=== PATIENT | female | born 1975 | race Two or more races ===

== ENCOUNTER 2024-06-11 05:20 | Emergency (ER) | payer MEDICAID ==
[~2024-06-11] VITALS: Ht 165.1 cm; Wt 72.7 kg
--- NOTE | 2024-06-11 06:30 | ED.PDOC ---
History of Present Illness HPI Comments 49-year-old female with PMHx Anxiety presents with a chief complaint of anxiety x 1 month. Patient reports that she has been losing weight (approximately 20 lbs), shaking, and been anxious. Patient denies seeing her PMD for a check-up or mental health services. Patient also reports that sometimes she gets pa lpitations, but currently does not have any. No other symptoms or modifying factors present at this time. Chief Complaint: Anxiety Time Seen by MD: 06:21 Reviewed Notes: Medications, Allergies Allergies: Coded Allergies: No Known Drug Allergy (Verified Allergy, Unknown, 06/11/24) Information Source: Patient Mode of Arrival: Ambulatory Severity: Moderate Timing: Weeks Duration: Intermittent Prehospital treatment: None Past Medical History PAST MEDICAL HISTORY: Anxiety Surgical History: Denies all surgeries MEDICAL MASSAGE THERAPIST History: Denies all MEDICAL MASSAGE THERAPIST Hx Family History Family History: Reviewed,noncontributory to illness Social History Smoker: Non-Smoker Alcohol: Denies ETOH Use Drugs: Denies Drug Use Lives In: Home Constitutional: denies: chills, diaphoresis, fatigue, fever, malaise, sweats, weakness, others EENTM: denies: blurred vision, double vision, ear bleeding, ear discharge, ear drainage, ear pain, ear ringing, eye pain, eye redness, hearing loss, mouth pain, mouth swelling, nasal discharge, nose bleeding, nose congestion, nose pain, photophobia, tearing, throat pain, throat swelling, voice changes, others Respiratory: denies: cough, hemoptysis, orthopnea, SOB at rest, shortness of breath, SOB with excertion, stridor, wheezing, others Cardiovascular: denies: chest pain, dizzy spells, diaphoresis, Dyspnea on exertion, edema, irregular heart beat, left arm pain, lightheadedness, pal pitations, PND, syncope, others Gastrointestinal: denies: abdomen distended, abdominal pain, blood streaked bowels, constipated, diarrhea, dysphagia, difficulty swallowing, hematemesis, melena, nausea, poor appetite, poor fluid intake, rectal bleeding, rectal pain, vomiting, others Genitourinary: denies: abnormal vagina bleeding, burning, dyspareunia, dysuria, flank pain, frequency, hematuria, incontinence, pain, , vagina discharge, urgency, others Neurological: denies: dizziness, fainting, headache, left sided numbness, left sided weakness, numbness, paresthesia, pre-existing deficit, right sided numbness, right sided weakness, seizure, speech problems, tingling, tremors, weakness, others Musculoskeletal: denies: back pain, gout, joint pain, joint swelling, muscle pain, muscle stiffness, neck pain, others Integumetry: denies: bruises, change in color, change in hair/nails, dryness, laceration, lesions, lumps, rash, wounds, others Allergic/Immunocompromised: denies: Difficulty Healing, Frequent Infections, Hives, Itching, others Hematologic/Lymphatic: denies: anemia, blood clots, easy bleeding, easy b ruising, swollen glands, others Endocrine: denies: excessive hunger, excessive sweating, excessive thirst, excessive urination, flushing, intolerance to cold, intolerance to heat, unexplained weight gain, unexplained weight loss, others Psychiatric: reports: anxiety; denies: bipolar disorder, depression, hopeless, panic disorder, schizophrenia, sleepless, suicidal, others All Other Systems: Reviewed and Negative Physical Exam General Appearance: Moderate Distress, Normal HEENT: Normal ENT Inspection, Pharynx Normal, TMs Normal Neck: Full Range of Motion, Non-Tender, Normal, Normal Inspection Respiratory: Chest Non-Tender, Lungs Clear, No Accessory Muscle Use, No Respiratory Distress, Normal Breath Sounds Cardiovascular: No Edema, No JVD, No Murmur, No Gallop, Normal Peripheral Pulses, Regular Rate/Rhythm Breast Exam: Deferred Gastrointestinal: No Organomegaly, Non Tender, No Pulsatile Mass, Normal Bowel Sounds, Soft Genitalia: Deferred Pelvic: Deferred Rectal: Deferred Extremities: No calf tenderness, Normal capillary refill, Normal inspection, Normal range of motion, Non-tender, No pedal edema Musculoskeletal : Apperance: Normal Neurologic: Alert, cable engineer outside plant II-XII nml as Tested, No Motor Deficits, Normal Affect, Normal Mood, No Sensory Deficits Cerebellar Function: Normal Reflexes: Normal Skin: Dry, Normal Color, Warm Peripheral Pulses: 3+ Radial (R), 3+ Radial (L) Lymphatic: No Adenopathy Was a procedure done? Was a procedure done?: No Differential Dx Considerations may include: Anxiety Denied any tract infection X-Ray, Labs, Meds, VS Vital Signs Date Time Temp Pulse Resp B/P (MAP) Pulse Ox O2 Delivery O2 Flow Rate FiO2 06/11/24 07:16 77 18 97 Room Air* 0 21 06/11/24 07:15 98.1 77 18 157/101 (119) 97 98.1 06/11/24 05:54 98.6 76 22 142/94 (110) 98 06/11/24 05:54 22 98 Room Air* 0 21 Lab Test 06/11/24 07:24 Range/Units Urine Color Light-red Yellow Urine Clarity Ex.turbid Clear Urine pH 5.5 5.0-9.0 Urine Specific [place] 1.021 1.001-1.035 Urine Protein 1+ H Negative Urine Ketones Negative Negative Urine Blood 3+ H Negative /uL Urine Nitrite Negative Negative Urine Bilirubin Negative Negative Urine Urobilinogen Normal Negative mg/dL Urine Leukocyte Esterase 1+ Negative /uL Urine RBC 7463 0 - 4 /hpf Urine Microscopic WBC 64 H 0-5 /HPF Urine Squamous Epithelial Cells None seen <5 /hpf Urine Bacteria None seen None Seen /hpf Urine Glucose Normal Normal mg/dL Current Medications Medications (Trade) Dose Ordered Sig/Saeid Route Start Time Stop Time Status Last Admin Lorazepam (Ativan Tablet) 1 mg ONCE ONCE PO 06/11/24 06:45 06/11/24 06:46 DC 06/11/24 07:21 Patient alert. No actual symptoms. Vitals stable. Answering all questions. She is anxious. Was given Ativan. Possible urinary tract infection. Pristine physical examination. No sign of distress. No chest pain. No leg swelling. No shortness a breath. No abdominal pain. Abdomen is soft nontender. Urinalysis shows UTI. Was given prescription of Macrobid antibiotic. Explained to the patient. Was told to follow up with her primary care physician. Was told to come back if there is any problem. Time of 1ST Reevaluation: 06:51 Reevaluation 1ST: Improved Patient Education/Counseling: Diagnosis, Treatment, Prognosis Family Education/Counseling: Diagnosis, Treatment, Prognosis Additional Information The following tests were ordered, and results were reviewed by me: Additional Information was gathered from interviewing the following independent historians: sinter machine operator I reviewed and agreed with the following test results read by other providers: I discussed treatment and results with medical personnel and: Departure 1 Departure Time of Disposition: 06:46 Impression: Primary Impression: Sepsis due to urinary tract infection Additional Impression: Anxiety Disposition: 01 HOME / SELF CARE / HOMELESS Condition: Good e-Prescriptions Nitrofurantoin Monohydrate Mac (Macrobid) 100 Mg Cap 100 MG PO BID for 7 Days, #14 CAP Prov: FROYLAN LEA MD 06/11/24 Discharged With: Self Critical Care Note Critical Care Time?: No Stability Stability form required: No Heart Score Heart Score: Heart Score Response (Comments) Value History N/A 0 EKG N/A 0 Age N/A 0 Risk Factors N/A 0 Troponin N/A 0 Total 0 I personally scribed for FROYLAN LEA MD ([email or web address]) on 06/11/24 at 06:30. Electronically submitted by [place] ([email or web address]). I personally scribed for FROYLAN LEA MD ([email or web address]) on 06/11/24 at 06:31. Electronically submitted by [place] ([email or web address]). I personally scribed for FROYLAN LEA MD ([email or web address]) on 06/11/24 at 06:32. Electronically submitted by [place] ([email or web address]). FROYLAN LEA MD Jun 11, 2024 06:30
[2024-06-11 07:16] VITALS: PULSE 77; RESP 18; O2SAT 97
[2024-06-11] MEDS: LORazepam 0.5 MG TAB PO ONE (07:21)
[2024-06-11 07:44] LABS: Urine Bacteria None Seen /hpf (None Seen)
[2024-06-11 07:56] LABS: Urine Blood 3+ /uL (Negative); Urine Clarity Ex.Turbid (Clear); Urine Color Light-Red (Yellow); Urine Protein, UAD 1+ (Negative); Urine Specific Gravity 1.021 (1.001-1.035); Urine Squamous Epithelial Cell None Seen /hpf (<5); Urine Urobilinogen Normal (Negative); Urine WBC 64 /HPF (0-5); Urine pH 5.5 (5.0-9.0)
[2024-06-11] MEDS ORDERED: NITR-87 PO (08:07)
[2024-06-11 08:14] VITALS: BP 148/76; PULSE 80; RESP 16; TEMP 98.3; O2SAT 98
== END 2024-06-11 08:16 | disposition home or self-care (01) ==
LOC: ER 05:20
DX: A41.9 Sepsis, unspecified organism (principal); N39.0 Urinary tract infection, site not specified; F41.9 Anxiety disorder, unspecified
CPT/HCPCS: 81001